=== PATIENT | male | born 1995 | race Two or more races ===

== ENCOUNTER 2016-11-08 09:07 | Emergency (ER) | payer OTHER ==
[~2016-11-08] VITALS: Ht 170.2 cm; Wt 71.4 kg
[2016-11-08] MEDS ORDERED: FLEXERIL5 MG PO (09:29)
[2016-11-08] MEDS ORDERED: NORCO 5/3251 TABLET PO (09:29)
[2016-11-08] MEDS ORDERED: MOTRIN600 MG PO (09:29)
[2016-11-08 09:52] VITALS: BP 140/78
== END 2016-11-08 09:53 | disposition home or self-care (01) ==
LOC: EME 09:07
DX: M43.6 Torticollis (principal); M54.2 Cervicalgia; M54.6 Pain in thoracic spine
CPT/HCPCS: 99281; 99284